=== PATIENT | female | born 1960 | race Caucasian/White ===

== ENCOUNTER 2017-01-07 10:21 | Inpatient (IN) ==
[2017-01-07] MEDS ORDERED: methylPREDNISolone 125 MG/2 ML VIAL IVP ONE ×2 (10:51→17:00)
--- NOTE | 2017-01-07 10:55 | Emergency Department Note ---
Disposition Clinical Impression: COPD with acute exacerbation Disposition: Admitted As Inpatient Condition: Fair Referrals: Halie Carlton, [employer] [Primary Care Provider] - Time of Disposition: 11:47 SOB HPI - General Stated Complaint: possible pneumonia Time Seen by Provider: 01/07/17 10:28 Source: patient Mode of arrival: ambulatory Limitations: no limitations Nursing Notes Reviewed: Yes Vital Signs Reviewed: Yes - History of Present Illness States symptoms for 3 weeks. No prior care except for taking a course of prednisone the first week of her illness but she artery had prescribed home from her client relationship executive. Pt Subjective Complaint: shortness of breath, cough Onset (ago): week(s) (3) Context: recent illness Severity: severe Consistency/Duration: constant Improves with: oxygen, rest, bronchodilators, upright position, medication Worsens with: lying flat, exertion, movement, coughing Known history of: COPD, congestive heart failure Associated symptoms: Reports: chest pain (but same as she always has), cough, wheezing, sputum production Treatment prior to arrival: oxygen, bronchodilator Cough present: Yes Cough Description: Productive, Moist, Strong Cough Frequency: Intermittent Sputum production: Yes Sputum Color: Yellow - Related Data Home oxygen amount: 2 liters Home Medications Medication Instructions Recorded Confirmed Albuterol Neb [Proventil Neb] 2.5 mg IH Q4HR 01/07/17 01/07/17 Albuterol Sulfate [Proair 90 mcg IH PRN PRN 01/07/17 01/07/17 Respiclick] Amlodipine Besylate 10 mg PO DAILY 01/07/17 01/07/17 Aspirin 81 mg PO DAILY 01/07/17 01/07/17 Atenolol [Tenormin] 25 mg PO DAILY 01/07/17 01/07/17 Atorvastatin [Lipitor] 40 mg PO HS 01/07/17 01/07/17 Cetirizine HCl [Zyrtec] 10 mg PO DAILY 01/07/17 01/07/17 Furosemide [Lasix] 40 mg PO DAILY 01/07/17 01/07/17 Gabapentin [Neurontin] 600 mg PO QID 01/07/17 01/07/17 Hydroxychloroquine [Plaquenuil] 400 mg PO DAILY 01/07/17 01/07/17 LORazepam [Lorazepam] 1 mg PO DAILY 01/07/17 01/07/17 Methylphenidate HCl 20 mg PO BID 01/07/17 01/07/17 [Methylphenidate ER] Metoprolol [Lopressor] 50 mg PO DAILY 01/07/17 01/07/17 Omeprazole Magnesium [Prilosec Otc] 20 mg PO DAILY 01/07/17 01/07/17 Potassium Chloride [Klor-Con 10] 10 meq PO DAILY 01/07/17 01/07/17 Ranolazine [Ranexa] 1,000 mg PO BID 01/07/17 01/07/17 Zafirlukast [Accolate] 20 mg PO BID 01/07/17 01/07/17 hydrOXYzine HCl [Hydroxyzine HCl] 100 mg PO QID 01/07/17 01/07/17 hydroCHLOROthiazide 25 mg PO DAILY 01/07/17 01/07/17 [Hydrochlorothiazide] metFORMIN [Glucophage] 1,000 mg PO 0800 01/07/17 01/07/17 Allergies Allergy/AdvReac Type Severity Reaction Status Date / Time Sulfa (Sulfonamide Allergy See Verified 01/07/17 11:14 Antibiotics) Comments morphine AdvReac See Verified 01/07/17 11:14 Comments Penicillins AdvReac Gastrointestinal Verified 01/07/17 11:14 Upset All systems ED: reviewed and negative except as stated. Review of Systems: As Per HPI Past Medical History - Past Medical History Medical history: Reports: COPD, diabetes, hyperlipidemia, hypertension Psychiatric history: Reports: anxiety, depression - Social History Smoking Status: Current every day smoker Smokeless Tobacco Status: No (e-cigarette) Alcohol use: Reports: none Drug use: Reports: none Physical Exam Constitutional: Patient is oriented to person, place, and time. Skin color is pink. Appears well hydrated, body habitus normal . Head: Normocephalic and atraumatic. External ear exam normal Nose: Nose normal. Mouth/Throat: Uvula is midline, oropharynx is clear and moist and mucous membranes are normal. Eyes: Conjunctivae nl, extraocular motions and lids are normal. Pupils are equal , round, and reactive to light. Neck: Normal range of motion and phonation normal. Neck supple. Cardiovascular: Normal rate, regular rhythm, normal heart sounds. Pulmonary/Chest: Patient presents with some Respiratory distress. Respiratory Effort increased. Intercostal muscle use. Tachypnea. Wheezes and rhonchi throughout all lung sanchez. Able to speak only a few words at a time without dyspnea. Abdominal: Soft. Normal appearance and bowel sounds are normal. No tenderness, no masses, no guarding, no rebound Musculoskeletal: Good distal pulses. Soft compartments. Brisk cap refill. Extremities: Normal range of motion.Intact peripheral pulses. No Edema. Extremity skin color nl, no calf tenderness or palpable cords. Neurological: Patient awake, aware, appropriate Patient is alert and oriented without evidence of obvious motor deficits Skin: Skin is warm, dry and intact. color is normal, cap refill is quick Psychiatric: Patient has normal mood and affect. Patient speech is normal and behavior is normal. Thought content normal. - General Limitations: no limitations General appearance: alert, in no apparent distress Course - Reevaluation(s) Reevaluation #1: I reevaluated the patient and she remains dyspneic and tachypnea, although slightly improved after breathing treatment. She has been ill with increasing dyspnea for 3 weeks, she has had multiple episodes of lightheadedness associated with dyspnea related to any minimal exertion at home. She felt like she was skin a pass out this morning when she woke up with her pulse ox at 75% in spite of her home CPAP and home oxygen. There is no significant signs of any infection. She denies specifically cough productive of purulent sputum or any fever. She has no history physical or testing to indicate cardiac or other cause of her symptoms. Likely COPD exacerbation. I spoke with Dr. Christensen hospitalist here because the patient if she requires admission which I believe she does, prefers to stay here if possible. I discussed the case with him and he feels as though she is a candidate for our facility and will accept her for admission. We discussed specific orders for bronchodilators, steroids, and we discussed the lack of infectious symptoms and he agreed that at this point there is no indication for cultures, lactate, or antibiotic prescription. He did request Lovenox and requested that I write orders as a courtesy for admission. Time: 11:44 Vital Signs Temperature 98.5 F 01/07/17 10:29 Pulse Rate 108 01/07/17 10:29 Respiratory Rate 22 01/07/17 10:29 Blood Pressure 143/79 01/07/17 10:29 O2 Sat by Pulse Oximetry 98 01/07/17 10:29 Temperature 98.5 F 01/07/17 10:29 Pulse Rate 108 01/07/17 10:29 Respiratory Rate 22 01/07/17 10:29 Blood Pressure 143/79 01/07/17 10:29 O2 Sat by Pulse Oximetry 98 01/07/17 10:29 Oxygen Delivery Oxygen Delivery Room Air Shortness of Breath/Dyspnea - MDM Narrative Medical decision making narrative: Patient has a history of COPD. She also has a history of CHF. She describes a catheterization several months ago which showed narrowed arteries and she has improved on Ranexa but does still have chest pain somewhat regularly. She feels as though this exacerbation is one of her COPD and not related to her heart. - Differential Diagnosis Likely: acute exacerbation of chronic obstructive airways disease, congestive heart failure - Medical Records Medical records reviewed: Yes I reviewed the patient's medical records. - Lab Data Lab results reviewed: Yes I reviewed the patient's lab results. Result diagrams: 01/07/17 10:53 01/07/17 10:53 Lab Results 01/07/17 01/07/17 01/07/17 Range/Units 10:53 10:53 10:53 WBC (4.3-11.1) K/mcL RBC (3.82-4.97) M/mcL Hgb (11.5-15.4) g/dL Hct (35.3-44.9) % MCV (83.0-100.0) fL MCH (28.0-33.3) pg MCHC (31.6-35.5) g/dL RDW (11.5-14.5) % Plt Count (140-400) K/mcL MPV (9.4-12.4) fL Immature Gran % (0-4) % Seg Neutrophils % % Lymphocytes % % Monocytes % % Eosinophils % % Basophils % % Neutrophils # (1.6-8.9) K/mcL Lymphocytes # (0.6-4.6) K/mcL Monocytes # (0.0-1.3) K/mcL Eosinophils # (0.0-0.6) K/mcL Basophils # (0.0-0.2) K/mcL PT 10.8 (9.4-12.1) Seconds INR 1.0 APTT 35.7 (26.0-36.0) Seconds Sodium (136-145) mEq/L Potassium (3.5-4.5) mEq/L Chloride (98-109) mEq/L Carbon Dioxide (19-29) mEq/L BUN (7-20) mg/dL Creatinine (0.57-1.11) mg/dL Est GFR ( Amer) (> 60) Est GFR (Non-Af Amer) (> 60) BUN/Creatinine Ratio (6-26) Glucose (70-99) mg/dL Calculated Osmolality (280-300) Calcium (8.6-10.8) mg/dL Total Bilirubin 0.3 (0.2-1.2) mg/dL Direct Bilirubin 0.2 (0.0-0.5) mg/dL Indirect Bilirubin 0.1 (0.0-1.2) mg/dL AST 15 (5-34) Units/L ALT 24 (0-55) Units/L Alkaline Phosphatase 95 (38-126) Units/L Troponin I (0-0.03) ng/mL B-Natriuretic Peptide 12 (0-100) pg/mL Serum Total Protein 8.3 (6.0-8.3) g/dL Albumin 3.8 (3.5-5.0) g/dL Globulin 4.5 H (2.4-3.5) g/dL Albumin/Globulin Ratio 0.8 L (1.1-2.2) 01/07/17 01/07/17 01/07/17 Range/Units 10:53 10:53 10:53 WBC 6.1 (4.3-11.1) K/mcL RBC 4.38 (3.82-4.97) M/mcL Hgb 12.3 (11.5-15.4) g/dL Hct 36.7 (35.3-44.9) % MCV 83.8 (83.0-100.0) fL MCH 28.1 (28.0-33.3) pg MCHC 33.5 (31.6-35.5) g/dL RDW 14.5 (11.5-14.5) % Plt Count 214 (140-400) K/mcL MPV 10.2 (9.4-12.4) fL Immature Gran % 0.7 (0-4) % Seg Neutrophils % 55.2 % Lymphocytes % 25.4 % Monocytes % 10.1 % Eosinophils % 7.8 % Basophils % 0.8 % Neutrophils # 3.4 (1.6-8.9) K/mcL Lymphocytes # 1.6 (0.6-4.6) K/mcL Monocytes # 0.6 (0.0-1.3) K/mcL Eosinophils # 0.5 (0.0-0.6) K/mcL Basophils # 0.1 (0.0-0.2) K/mcL PT (9.4-12.1) Seconds INR APTT (26.0-36.0) Seconds Sodium 140 (136-145) mEq/L Potassium 4.0 (3.5-4.5) mEq/L Chloride 102 (98-109) mEq/L Carbon Dioxide 25 (19-29) mEq/L BUN 14 (7-20) mg/dL Creatinine 0.93 (0.57-1.11) mg/dL Est GFR ( Amer) > 60 (> 60) Est GFR (Non-Af Amer) > 60 (> 60) BUN/Creatinine Ratio 15 (6-26) Glucose 127 H (70-99) mg/dL Calculated Osmolality 292 (280-300) Calcium 10.1 (8.6-10.8) mg/dL Total Bilirubin (0.2-1.2) mg/dL Direct Bilirubin (0.0-0.5) mg/dL Indirect Bilirubin (0.0-1.2) mg/dL AST (5-34) Units/L ALT (0-55) Units/L Alkaline Phosphatase (38-126) Units/L Troponin I 0.00 (0-0.03) ng/mL B-Natriuretic Peptide (0-100) pg/mL Serum Total Protein (6.0-8.3) g/dL Albumin (3.5-5.0) g/dL Globulin (2.4-3.5) g/dL Albumin/Globulin Ratio (1.1-2.2) - Radiology Data Radiology results reviewed: Yes I reviewed the patient's radiology results. NAD cxr w/ out acute abnl - EKG Data EKG attestation: Yes I reviewed and interpreted this EKG. EKG shows normal: Reports: sinus rhythm Rate: Reports: normal Rhythm: Reports: NSR Interpretation: Reports: nonspecific ST-T wave changes
[2017-01-07 10:59] LABS: Basophils # 0.1 K/mcL (0.0-0.2); Basophils % 0.8 %; Eosinophils # 0.5 K/mcL (0.0-0.6); Eosinophils % 7.8 %; Hematocrit 36.7 % (35.3-44.9); Hemoglobin 12.3 g/dL (11.5-15.4); Immature Granulocytes % 0.7 % (0-4); Lymphocytes # 1.6 K/mcL (0.6-4.6); Lymphocytes % 25.4 %; Mean Corpuscular HGB Conc 33.5 g/dL (31.6-35.5); Mean Corpuscular Hemoglobin 28.1 pg (28.0-33.3); Mean Corpuscular Volume 83.8 fL (83.0-100.0); Mean Platelet Volume 10.2 fL (9.4-12.4); Monocytes # 0.6 K/mcL (0.0-1.3); Monocytes % 10.1 %; Neutrophils # 3.4 K/mcL (1.6-8.9); Platelet Count 214 K/mcL (140-400); Red Blood Count 4.38 M/mcL (3.82-4.97); Red Cell Distribution Width 14.5 % (11.5-14.5); Segmented Neutrophils % 55.2 %
[2017-01-07 11:05] LABS: Prothrombin Time 10.8 Seconds (9.4-12.1)
[2017-01-07 11:07] LABS: Activated Partial Thrombo Time 35.7 Seconds (26.0-36.0)
[2017-01-07 11:17] LABS: BUN/Creatinine Ratio 15 (6-26); Blood Urea Nitrogen 14 mg/dL (7-20); Calcium 10.1 mg/dL (8.6-10.8); Carbon Dioxide 25 mEq/L (19-29); Chloride 102 mEq/L (98-109); Glucose 127 mg/dL (70-99); Osmolality,Calculated 292 (280-300); Sodium 140 mEq/L (136-145); eGFR For African Americans > 60 (> 60); eGFR For Non-African Americans > 60 (> 60)
[2017-01-07 11:18] LABS: Albumin 3.8 g/dL (3.5-5.0); Albumin/Globulin Ratio 0.8 (1.1-2.2); Bilirubin,Direct 0.2 mg/dL (0.0-0.5); Bilirubin,Indirect 0.1 mg/dL (0.0-1.2); Bilirubin,Total 0.3 mg/dL (0.2-1.2); Globulin 4.5 g/dL (2.4-3.5); Total Protein 8.3 g/dL (6.0-8.3)
[2017-01-07] MEDS ORDERED: Ipratropium/Albuterol Neb 3 ML IH ONE ×2 (11:30→11:48)
[2017-01-07] MEDS ORDERED: Ondansetron 4 MG/2 ML VIAL IVP PRN (12:40)
[2017-01-07] MEDS ORDERED: Acetaminophen 325 MG TABLET PO PRN (12:40)
[2017-01-07] MEDS ORDERED: Naloxone 0.4 MG/ML INJ IVP PRN (12:40)
[2017-01-07] MEDS ORDERED: Ipratropium/Albuterol Neb 3 ML IH PRN (12:40)
--- NOTE | 2017-01-07 15:41 | Internal Med History&Physical ---
Date of Encounter: 01/07/17 Time of Encounter: 15:39 Assessment and Plan (1) COPD with acute exacerbation Current visit: Yes Status: Acute Patient's here for aggressive pulmonary treatment for acute exacerbation of COPD. Internal Medicine - H&P: HPI Chief complaint: History of COPD been short of breath for 3 weeks Admitted From: Emergency Dept Plans for Post Hospital Care: Home History of present illness: Ms. Wu is a 56 year old female Who presented to emergency room after 3 weeks of shortness of breath. She has a nonproductive cough she denies any nausea vomiting she is been somewhat lightheaded. She has CPAP which he uses whenever she lies down and home O2. She has had there for about 7 years. She states though even with CPAP and O2 sats were 75% at home. She was aggressively treated in the emergency room and is much improved. But she does need admission Past Med Surg Social Fam HX - Past Medical History Medical history: asthma, cancer, CHF, COPD, DVT, diabetes, GERD, hyperlipidemia , hypertension, myocardial infarction Psychiatric history: anxiety, depression - Past Surgical History Surgical History: hysterectomy - Social History Smoking Status: Current every day smoker Smokeless Tobacco Status: No (e-cigarette) Alcohol use: none Drug use: none - Family History Father Family Member Ethnicity: Unknown Living Status: Age at : 50 Cause of : HEART ATTACK Hx Family Cardiac Disorders: Yes Internal Medicine - H&P: Meds Albuterol Neb [Proventil Neb] 2.5 mg IH Q4HR 01/07/17 [History] Albuterol Sulfate [Proair Respiclick] 90 mcg IH PRN PRN 01/07/17 [History] Amlodipine Besylate 10 mg PO DAILY 01/07/17 [History] Aspirin 81 mg PO DAILY 01/07/17 [History] Atenolol [Tenormin] 25 mg PO DAILY 01/07/17 [History] Atorvastatin [Lipitor] 40 mg PO HS 01/07/17 [History] Cetirizine HCl [Zyrtec] 10 mg PO DAILY 01/07/17 [History] Furosemide [Lasix] 40 mg PO DAILY 01/07/17 [History] Gabapentin [Neurontin] 600 mg PO QID 01/07/17 [History] Hydroxychloroquine [Plaquenuil] 400 mg PO DAILY 01/07/17 [History] LORazepam [Lorazepam] 1 mg PO DAILY 01/07/17 [History] Methylphenidate HCl [Methylphenidate ER] 20 mg PO BID 01/07/17 [History] Metoprolol [Lopressor] 50 mg PO DAILY 01/07/17 [History] Omeprazole Magnesium [Prilosec Otc] 20 mg PO DAILY 01/07/17 [History] Potassium Chloride [Klor-Con 10] 10 meq PO DAILY 01/07/17 [History] Ranolazine [Ranexa] 1,000 mg PO BID 01/07/17 [History] Zafirlukast [Accolate] 20 mg PO BID 01/07/17 [History] hydrOXYzine HCl [Hydroxyzine HCl] 100 mg PO QID 01/07/17 [History] hydroCHLOROthiazide [Hydrochlorothiazide] 25 mg PO DAILY 01/07/17 [History] metFORMIN [Glucophage] 1,000 mg PO 0800 01/07/17 [History] 3 Allergy/AdvReac Type Severity Reaction Status Date / Time Sulfa (Sulfonamide Allergy See Verified 01/07/17 11:14 Antibiotics) Comments morphine AdvReac See Verified 01/07/17 11:14 Comments Penicillins AdvReac Gastrointestinal Verified 01/07/17 11:14 Upset All Systems PM: A 10-system review of systems was performed and is negative for pertinent findings except as documented above in the HPI. - Constitutional Constitutional: as per HPI - EENT Eyes: as per HPI Ears: as per HPI Nose, mouth and throat: as per HPI - Breasts Breasts: as per HPI - Cardiovascular Cardiovascular ROS IM: dyspnea, dyspnea on exertion, lightheadedness - Respiratory Respiratory: dyspnea, dyspnea on exertion, wheezing - Gastrointestinal Gastrointestinal: as per HPI - Genitourinary Genitourinary: as per HPI - Musculoskeletal Musculoskeletal ROS IM: arthralgias, myalgias, stiffness - Neurological Neurological ROS: as per HPI - Psychiatric Psychiatric: as per HPI - Allergic/Immunologic Allergic/Immunologic: wheezing - Constitutional Vitals: Temp Pulse Resp BP Pulse Ox 97.6 F 73 16 150/82 98 01/07/17 13:03 01/07/17 13:03 01/07/17 13:03 01/07/17 13:03 01/07/17 13:03 General appearance: Present: cooperative, A&O X 3, pleasant, obese - Head Head exam: Present: atraumatic, normal inspection, normocephalic - Neck Neck exam general surgery: Present: supple, trachea midline. Absent: lymphadenopathy - Respiratory Respiratory exam: Present: decreased breath sounds, CTAB, prolonged expiratory phase. Absent: accessory muscle use, rales, rhonchi, wheezes - Cardiovascular Cardiovascular exam: Present: RRR, +S1, +S2. Absent: diastolic murmur, gallop, rubs, systolic murmur - GI/Abdominal GI/Abdominal exam: Present: normal bowel sounds, soft, no peritoneal signs. Absent: distended, tenderness Internal Med - H&P Results - Labs CBC & Chem 7: 01/07/17 10:53 01/07/17 10:53 Labs: Lab was not impressive for changing
[2017-01-07] MEDS: Gabapentin 300 MG CAPSULE PO SCH ×3 (15:53→21:26)
[2017-01-07] MEDS: Ipratropium/Albuterol Neb 3 ML IH SCH ×3 (15:53→21:24)
[2017-01-07] MEDS: methylPREDNISolone 125 MG/2 ML VIAL IVP SCH (16:00)
[2017-01-07] MEDS ORDERED: hydrOXYzine pamoate 25 MG CAPSULE PO PRN (20:11)
[2017-01-07] MEDS ORDERED: *HR* LORazepam 1 MG TABLET PO SCH (21:00)
[2017-01-07] MEDS ORDERED: Methylphenidate HCl 10 MG TABLET PO SCH (21:00)
[2017-01-07] MEDS: Ranolazine 500 MG TAB.ER.12H PO SCH (21:26)
[2017-01-07] MEDS ORDERED: *HR* Metformin 500 MG TABLET PO SCH (21:45)
[2017-01-08] MEDS: methylPREDNISolone 125 MG/2 ML VIAL IVP SCH ×4 (01:09→21:18)
[2017-01-08] MEDS: Ipratropium/Albuterol Neb 3 ML IH SCH ×6 (01:09→21:20)
[2017-01-08] MEDS: *HR* Enoxaparin 40 MG/0.4 ML SYRINGE SQ SCH (05:10)
[2017-01-08] MEDS: Methylphenidate HCl 10 MG TABLET PO SCH ×2 (08:00→12:19)
[2017-01-08] MEDS ORDERED: *HR* Metformin 500 MG TABLET PO SCH (08:00)
[2017-01-08] MEDS: amLODIPine 5 MG TABLET PO SCH (08:11)
[2017-01-08] MEDS: Ranolazine 500 MG TAB.ER.12H PO SCH ×2 (08:11→21:26)
[2017-01-08] MEDS: hydrOXYzine pamoate 25 MG CAPSULE PO SCH ×4 (08:12→21:35)
[2017-01-08] MEDS: Aspirin 81 MG TAB.CHEW PO SCH (08:12)
[2017-01-08] MEDS: Gabapentin 300 MG CAPSULE PO SCH ×4 (08:12→21:27)
[2017-01-08 08:21] LABS: Basophils % 0.1 %; Hematocrit 33.2 % (35.3-44.9); Hemoglobin 11.1 g/dL (11.5-15.4); Immature Granulocytes % 0.4 % (0-4); Lymphocytes % 7.3 %; Mean Corpuscular HGB Conc 33.4 g/dL (31.6-35.5); Mean Corpuscular Volume 83.8 fL (83.0-100.0); Mean Platelet Volume 11.2 fL (9.4-12.4); Monocytes # 0.2 K/mcL (0.0-1.3); Monocytes % 1.1 %; Neutrophils # 12.8 K/mcL (1.6-8.9); Platelet Count 201 K/mcL (140-400); Red Blood Count 3.96 M/mcL (3.82-4.97); Red Cell Distribution Width 14.6 % (11.5-14.5); Segmented Neutrophils % 91.1 %
[2017-01-08 08:25] LABS: Prothrombin Time 11.2 Seconds (9.4-12.1)
[2017-01-08 08:27] LABS: Activated Partial Thrombo Time 33.8 Seconds (26.0-36.0); Alanine Aminotransferase 19 Units/L (0-55); Albumin 3.5 g/dL (3.5-5.0); Albumin/Globulin Ratio 0.9 (1.1-2.2); Alkaline Phosphatase 80 Units/L (38-126); Aspartate Amino Transferase 10 Units/L (5-34); BUN/Creatinine Ratio 18 (6-26); Bilirubin,Total 0.3 mg/dL (0.2-1.2); Blood Urea Nitrogen 17 mg/dL (7-20); Calcium 9.8 mg/dL (8.6-10.8); Carbon Dioxide 22 mEq/L (19-29); Chloride 102 mEq/L (98-109); Globulin 3.9 g/dL (2.4-3.5); Glucose 280 mg/dL (70-99); Osmolality,Calculated 300 (280-300); Potassium 4.2 mEq/L (3.5-4.5); Sodium 139 mEq/L (136-145); Total Protein 7.4 g/dL (6.0-8.3); eGFR For African Americans > 60 (> 60); eGFR For Non-African Americans > 60 (> 60)
[2017-01-08] MEDS ORDERED: Furosemide 40 MG TABLET PO SCH (09:00)
[2017-01-08] MEDS ORDERED: *HR* LORazepam 1 MG TABLET PO SCH ×2 (09:00→21:00)
[2017-01-08] MEDS ORDERED: Furosemide 20 MG TABLET PO PRN (15:20)
[2017-01-08] MEDS: *HR* Metformin 500 MG TABLET PO SCH (17:27)
[2017-01-09] MEDS: Ipratropium/Albuterol Neb 3 ML IH SCH ×3 (01:02→08:47)
[2017-01-09] MEDS: methylPREDNISolone 125 MG/2 ML VIAL IVP SCH ×2 (01:03→06:18)
[2017-01-09] MEDS: *HR* Enoxaparin 40 MG/0.4 ML SYRINGE SQ SCH (06:19)
[2017-01-09 07:43] VITALS: BP 111/77
[2017-01-09] MEDS: *HR* Metformin 500 MG TABLET PO SCH (08:45)
[2017-01-09] MEDS: Ranolazine 500 MG TAB.ER.12H PO SCH (08:45)
[2017-01-09] MEDS: Gabapentin 300 MG CAPSULE PO SCH (08:46)
[2017-01-09] MEDS: Aspirin 81 MG TAB.CHEW PO SCH (08:46)
[2017-01-09] MEDS: amLODIPine 5 MG TABLET PO SCH (08:46)
[2017-01-09] MEDS: Methylphenidate HCl 10 MG TABLET PO SCH (08:46)
[2017-01-09] MEDS: hydrOXYzine pamoate 25 MG CAPSULE PO SCH (09:34)
--- NOTE | 2017-01-09 11:18 | Internal Med Progress Note ---
Date of Encounter: 01/08/17 Time of Encounter: : - Assessment and plan (1) COPD with acute exacerbation Current Visit: Yes Status: Acute Assessment and plan: Patient is much more stable and may be discharged tomorrow - Time Spent With Patient less than 15 minutes - Subjective Interval history: Patient's been doing very well. Her sats are in the high 90s she is comfortable she is eating and talking getting very anxious about going home. sHe states that she is back to baseline - Constitutional Vitals: Temp Pulse Resp BP Pulse Ox 97.8 F 85 18 111/77 94 01/09/17 07:42 01/09/17 07:42 01/09/17 07:42 01/09/17 07:42 01/09/17 07:42 General appearance: Present: cooperative, A&O X 3, pleasant, obese - Head Head exam: Present: atraumatic, normal inspection, normocephalic - Neck Neck exam general surgery: Present: supple, trachea midline. Absent: lymphadenopathy - Respiratory Respiratory exam: Present: decreased breath sounds, CTAB, prolonged expiratory phase. Absent: accessory muscle use, rales, rhonchi, wheezes - Cardiovascular Cardiovascular exam: Present: RRR, +S1, +S2. Absent: diastolic murmur, gallop, rubs, systolic murmur Internal Medicine: Result - Labs CBC & Chem 7: 01/08/17 07:50 01/08/17 07:50 Labs: lab looks good - ABG Interpretation ABG results: PT/INR, D-dimer PT 11.2 Seconds (9.4-12.1) 01/08/17 07:50 Consult Discharge Plan - Plan Referrals: Halie Carlton, RN ACUTE CARE [Primary Care Provider] -
--- NOTE | 2017-01-09 11:24 | Discharge Summary ---
Date of Encounter: 01/09/17 Time of Encounter: 11:22 - Discharge Diagnosis (1) COPD with acute exacerbation Priority: Primary Status: Acute Comments: Much improved patient is anxious to be discharged. She states she is back to baseline - Discharge Medications Home Medications: Albuterol Neb [Proventil Neb] 2.5 mg IH Q4HR 01/07/17 [History] Albuterol Sulfate [Proair Respiclick] 90 mcg IH PRN PRN 01/07/17 [History] Amlodipine Besylate 10 mg PO DAILY 01/07/17 [History] Aspirin 81 mg PO DAILY 01/07/17 [History] Atenolol [Tenormin] 25 mg PO DAILY 01/07/17 [History] Atorvastatin [Lipitor] 40 mg PO HS 01/07/17 [History] Cetirizine HCl [Zyrtec] 10 mg PO DAILY 01/07/17 [History] Furosemide [Lasix] 40 mg PO DAILY 01/07/17 [History] Gabapentin [Neurontin] 600 mg PO QID 01/07/17 [History] Hydroxychloroquine [Plaquenuil] 400 mg PO DAILY 01/07/17 [History] LORazepam [Lorazepam] 1 mg PO DAILY 01/07/17 [History] Methylphenidate HCl [Methylphenidate ER] 20 mg PO BID 01/07/17 [History] Metoprolol [Lopressor] 50 mg PO DAILY 01/07/17 [History] Omeprazole Magnesium [Prilosec Otc] 20 mg PO DAILY 01/07/17 [History] Potassium Chloride [Klor-Con 10] 10 meq PO DAILY 01/07/17 [History] Ranolazine [Ranexa] 1,000 mg PO BID 01/07/17 [History] Zafirlukast [Accolate] 20 mg PO BID 01/07/17 [History] hydrOXYzine HCl [Hydroxyzine HCl] 100 mg PO QID 01/07/17 [History] hydroCHLOROthiazide [Hydrochlorothiazide] 25 mg PO DAILY 01/07/17 [History] metFORMIN [Glucophage] 1,000 mg PO 0800 01/07/17 [History] Allergies/Adverse Reactions: 3 Allergy/AdvReac Type Severity Reaction Status Date / Time Sulfa (Sulfonamide Allergy See Verified 01/07/17 11:14 Antibiotics) Comments morphine AdvReac See Verified 01/07/17 11:14 Comments Penicillins AdvReac Gastrointestinal Verified 01/07/17 11:14 Upset Date of admission: 01/07/17 14:04 Primary care physician: Halie Carlton CNP Discharging clinician: Clement Christensen - Patient Status Disposition: Home, Self-Care Condition: Good Functional capacity at discharge: independent ambulation Overall status at discharge: patient is progressing back to baseline - Discharge Instructions Follow Up With: Halie Carlton CNP [Primary Care Provider] - - Diet and Activity Activity: resume usual activities as tolerated, wear oxygen at all times Diet: advance to your usual diet Interval History: Patient presented to the emergency room with 3 week history of severe shortness of breath. He states her albuterol at home on her home O2 did not help. She was wearing her C Pap continuously Hospital course: Ms. Wu is a 56 year old female She improved over daily basis even by the time she was admitted to the floor she states she was breathing better. But she was still wheezing. Currently she is clear she states she is back to baseline and is anxious to be discharged home. I have a slight suspicion that she wants to smoke - Time Spent with Patient Total time spent providing and/or coordinating discharge services: Less than 30 minutes - Constitutional Vitals: Temp Pulse Resp BP Pulse Ox 97.8 F 85 18 111/77 94 01/09/17 07:42 01/09/17 07:42 01/09/17 07:42 01/09/17 07:42 01/09/17 07:42 General appearance: Present: cooperative, A&O X 3, pleasant, obese - Head Head exam: Present: atraumatic, normal inspection, normocephalic - Neck Neck exam general surgery: Present: supple, trachea midline. Absent: lymphadenopathy - Respiratory Respiratory exam: Present: decreased breath sounds, CTAB, prolonged expiratory phase. Absent: accessory muscle use, rales, rhonchi, wheezes - Cardiovascular Cardiovascular exam: Present: RRR, +S1, +S2. Absent: diastolic murmur, gallop, rubs, systolic murmur - GI/Abdominal GI/Abdominal exam: Present: normal bowel sounds, soft, no peritoneal signs. Absent: distended, tenderness
--- NOTE | 2017-01-09 15:17 | Electrocardiograph Report ---
[facility] Test Date: 2017-01-07 Pat Name: Luma Wu Department: 2000 Room: 112 Gender: F Alternative Energy Technician: TLC : 1960 Requested By: Gabby Renteria Order Number: [id number] Reading MD: Chauncey Navarro MD Measurements Intervals [place] Rate: 73 P: 48 SD: 148 QRS: 30 QRSD: 90 T: 19 QT: 407 QTc: 433 Interpretive Statements SINUS RHYTHM NONSPECIFIC T-WAVE ABNORMALITY Electronically Signed On 01-09-2017 15:15:45 EDT by Chauncey Navarro MD
== END 2017-01-09 12:01 | disposition home or self-care (01) | DRG 192 ==
LOC: INPGRE 10:21 → EMEROOGRE 10:21 → INPGRE 12:16
PROVIDERS: ADMIT Internal Medicine; ATTEND Internal Medicine